=== PATIENT | female | born 1985 | race Native Hawaiian/Other Pacific Islander ===

== ENCOUNTER 2019-04-23 17:21 | Emergency (ER) | payer OTHER ==
[~2019-04-23] VITALS: Ht 160 cm; Wt 104.3 kg
[2019-04-23 18:30] LABS: PLATELET COUNT 359 K/uL (152-353)
[2019-04-23 18:58] LABS: PARTIAL THROMBOPLASTIN TIME 25.4 SECONDS (24.5-33.6); POTASSIUM 3.8 mmol/L (3.6-5.2)
[2019-04-23 20:40] VITALS: BP 119/74; TEMP 98.6
== END 2019-04-23 20:40 | disposition home or self-care (01) ==
LOC: ED 17:21
PROVIDERS: Hospitalist
DX: N39.0 Urinary tract infection, site not specified (principal); R31.9 Hematuria, unspecified
CPT/HCPCS: 36415; 80053; 81000; 81025; 82150; 83690; 85027; 85610; 85730; 87077; 87086; 87088; 87186; 96360; 96365; 96375; 99284; J0696; J1170; J1885; J2405

== ENCOUNTER 2021-07-22 15:16 | Emergency (ER) | payer OTHER ==
[~2021-07-22] VITALS: Ht 160 cm; Wt 98.4 kg
[2021-07-22 15:17] VITALS: BP 121/76; TEMP 98.3
[2021-07-22 15:38] LABS: PLATELET COUNT 425 K/uL (152-353)
[2021-07-22 15:46] LABS: POTASSIUM 3.6 mmol/L (3.6-5.2)
== END 2021-07-22 17:18 | disposition home or self-care (01) ==
LOC: ED 15:16
PROVIDERS: Hospitalist
DX: I89.0 Lymphedema, not elsewhere classified (principal)
CPT/HCPCS: 80048; 85027; 85379; 85610; 85730; 96374; 99284; J1885